=== PATIENT | female | born 1970 | race Asian ===

== ENCOUNTER 2020-08-27 15:24 | Outpatient (CLI) | payer OTHER, SELFPAY ==
--- NOTE | ~2020-08-27 | MM_ITS ---
EXAMINATION: MM screening [facility] BI w jazmyne HISTORY: Screening mammogram TECHNIQUE: Craniocaudal and mediolateral oblique 3-D tomosynthesis images were obtained and synthetic 2-D images were generated. CAD analysis was submitted and interpreted. COMPARISON: 08/19/2019, 08/07/2018, 08/03/1970 BREAST PARENCHYMAL COMPOSITION: There are scattered areas of fibroglandular density. FINDINGS: There is no evidence of suspicious mass, calcification, or architectural distortion to sugg est malignancy in either breast. There has been no suspicious interval change. IMPRESSION: 1. No mammographic evidence of malignancy. 2. Recommend routine screening mammography in one year. BI-RADS Category 1: Negative Reviewed, dictated and finalized at location A. CHARGER
== END 2020-08-27 15:25 | disposition home or self-care (01) ==
LOC: ANHIMG 15:29
PROVIDERS: PCP Emergency Medicine; Visit Provider Obstetrics & Gynecology
DX: Z12.31 Encounter for screening mammogram for malignant neoplasm of breast (principal)
CPT/HCPCS: 77063; 77067

== ENCOUNTER → 2021-08-15 09:32 | Outpatient (CLI) | payer OTHER, SELFPAY ==
--- NOTE | ~2021-08-15 | CT_ITS ---
EXAMINATION: CT abdomen pelvis wo/w con DATE: 08/15/2021 10:12 INDICATION: Hematuria TECHNIQUE: Computed tomography (CT) of the abdomen and pelvis was performed without intravenous contr ast in supine position. CT of the abdomen and pelvis was then performed in prone position with a tota l of 130 mL Omnipaque-350 intravenous contrast using a double-bolus technique for simultaneous opacif ication of the renal parenchyma and renal collecting system Automated exposure control and iterative reconstruction technique were employed. The dose-length product was 1158.73 mGy-cm. COMPARISON: None FINDINGS: Lung bases are clear. Heart size is normal. No pericardial or pleural effusion. Liver, gallbladder, s pleen, pancreas and bilateral adrenal glands are normal. No urolithiasis. Kidneys enhance symmetrical ly with 5 mm low-attenuation lesion in the right kidney which is too small to definitively, character ize most likely a renal cyst. Portions of the left and right ureters are decompressed remaining unopa cified with contrast on the delayed images. No urothelial irregularities identified in the contrast o pacified portions of the bilateral renal collecting systems and ureters. Bladder is normal. Bowels in cluding the appendix are normal. Anteverted uterus and bilateral adnexa are normal. No free intraperi toneal gas or fluid. No pathologically enlarged abdominal or pelvic lymphadenopathy. 4 mm anterolisth esis L4 on L5 with severe bilateral facet osteoarthritis at this level. Severe section scar along the anterior pelvic wall. IMPRESSION: 1. 5 mm low-attenuation likely right renal cyst which is too small to definitively characterize. Othe rwise normal kidneys and ureters with no urolithiasis or other etiology for reported hematuria. Reviewed, dictated and finalized at [facility]. ACTION OPERATOR IMPRESSION: 1. 5 mm low-attenuation likely right renal cyst which is too small to definitiv nguyen characterize. Otherwise normal kidneys and ureters with no urolithiasis or other etiology for reported hematuria.
[2021-08-15 09:51] LABS: Estimated Glomerular Filt Rate > 60
== END ==
PROVIDERS: PCP Emergency Medicine; Visit Provider Emergency Medicine
DX: R31.9 Hematuria, unspecified (principal); N28.1 Cyst of kidney, acquired
CPT/HCPCS: 74178; Q9967

== ENCOUNTER 2021-09-14 08:31 | Outpatient (CLI) | payer OTHER, SELFPAY ==
--- NOTE | ~2021-09-14 | MM_ITS ---
EXAMINATION: MM screening [facility] BI w jazmyne HISTORY: Screening mammogram TECHNIQUE: Craniocaudal and mediolateral oblique 3-D tomosynthesis images were obtained and synthetic 2-D images were generated. CAD analysis was submitted and interpreted. COMPARISON: 08/27/2020 08/19/2019, 08/07/2018 BREAST PARENCHYMAL COMPOSITION: There are scattered areas of fibroglandular density. FINDINGS: There is no evidence of suspicious mass, calcification, or architectural distortion to sugg est malignancy in either breast. There has been no suspicious interval change. IMPRESSION: 1. No mammographic evidence of malignancy. 2. Recommend routine screening mammography in one year. BI-RADS Category 1: Negative Reviewed, dictated and finalized at location A. NICAL SERVICES REP
== END 2021-09-14 08:32 | disposition home or self-care (01) ==
LOC: ANHIMG 08:33
PROVIDERS: PCP Emergency Medicine; Visit Provider Obstetrics & Gynecology
DX: Z12.31 Encounter for screening mammogram for malignant neoplasm of breast (principal)
CPT/HCPCS: 77063; 77067

== ENCOUNTER 2022-11-01 08:27 | Outpatient (CLI) | payer OTHER, SELFPAY ==
--- NOTE | ~2022-11-01 | MM_ITS ---
EXAMINATION: MM screening [facility] BI w jazmyne HISTORY: Screening mammogram TECHNIQUE: Craniocaudal and mediolateral oblique 3-D tomosynthesis images were obtained and synthetic 2-D images were generated. CAD analysis was submitted and interpreted. COMPARISON: 09/14/2021, 08/27/2020, 08/19/2019 bilateral screening mammogram examinations BREAST PARENCHYMAL COMPOSITION: There are scattered areas of fibroglandular density. FINDINGS: There is no evidence of suspicious mass, calcification, or architectural distortion to sugg est malignancy in either breast. There has been no suspicious interval change. IMPRESSION: 1. No mammographic evidence of malignancy. 2. Recommend routine screening mammography in one year. BI-RADS Category 1: Negative Reviewed, dictated and finalized at location B.
== END 2022-11-01 08:28 | disposition home or self-care (01) ==
LOC: ANHIMG 08:29
PROVIDERS: PCP Emergency Medicine; Visit Provider Obstetrics & Gynecology
DX: Z12.31 Encounter for screening mammogram for malignant neoplasm of breast (principal)
CPT/HCPCS: 77063; 77067

== ENCOUNTER 2024-01-03 15:13 | Outpatient (CLI) | payer OTHER, SELFPAY ==
--- NOTE | ~2024-01-03 | MM_ITS ---
EXAMINATION: MM screening [facility] BI w jazmyne HISTORY: Screening mammogram TECHNIQUE: Craniocaudal and mediolateral oblique 3-D tomosynthesis images were obtained and synthetic 2-D images were generated. CAD analysis was submitted and interpreted. COMPARISON: 11/01/2022, 09/14/2021 bilateral screening mammogram examinations BREAST PARENCHYMAL COMPOSITION: There are scattered areas of fibroglandular density. FINDINGS: There is no evidence of suspicious mass, calcification, or architectural distortion to sugg est malignancy in either breast. There has been no suspicious interval change. IMPRESSION: 1. No mammographic evidence of malignancy. 2. Recommend routine screening mammography in one year. BI-RADS Category 1: Negative Reviewed, dictated and finalized at location B.
== END 2024-01-03 15:14 | disposition home or self-care (01) ==
LOC: ANHIMG 15:15
PROVIDERS: PCP Emergency Medicine; Visit Provider Obstetrics & Gynecology
DX: Z12.31 Encounter for screening mammogram for malignant neoplasm of breast (principal)
CPT/HCPCS: 77063; 77067

== ENCOUNTER 2025-01-26 15:17 | Outpatient (CLI) | payer OTHER, SELFPAY ==
--- NOTE | ~2025-01-26 | MM_ITS ---
EXAMINATION: MM screening [facility] BI w jazmyne HISTORY: Screening TECHNIQUE: Craniocaudal and mediolateral oblique 3-D tomosynthesis images were obtained and synthetic 2-D images were generated. CAD analysis was submitted and interpreted. COMPARISON: Comparison to multiple prior studies sequentially, with oldest reviewed study dated 07/20. BREAST PARENCHYMAL COMPOSITION: Not dense: There are scattered areas of fibroglandular density. FINDINGS: There is no evidence of suspicious mass, calcification, or architectural distortion to sugg est malignancy in either breast. There has been no suspicious interval change. IMPRESSION: 1. No mammographic evidence of malignancy. 2. Recommend routine screening mammography in one year. BI-RADS Category 1: Negative Reviewed, dictated and finalized at location B.
--- OUTSIDE RECORDS SUMMARY | 2025-01-26 16:13 | XMS_ITS | Continuity of Care Document ---
Author Organization [facility] Address [address] [place] [address] [place] [address] Phone Care Team Providers Care Estimator Jewelry Name Role Phone Saúl Ellison MD Unavailable Unavailable Allergies, Adverse Reactions, Alerts Substance Reaction Status Criticality No Known Allergies Active No Inform ation Procedures Procedure Date PREV VISIT, EST, AGE 40-64 OFFICE/OUTPATIENT VISIT, EST PREV VISIT, EST, AGE 40-64 PREV VISIT, EST, AGE 40-64 OFFICE/OUTPATIENT VISIT, EST PREV VISIT, NEW, AGE 40-64 Advance Directives Directive Yes / No Effective Date File Name No Information Encounters Encounter Description Practice Location Reason(s) For Visit Diagnoses Date Provider Providers Copied on Encounter PREV VISIT, EST, AGE 40-64 [facility], [address] [place], [place], [id number], [place] tel:[phone] [facility] physical (chief complaint) Encounter for general adult medical exam w abnormal findingsMixed hyperlipidemiaLeuko peniaDisorder of iron metabolism, unspecifiedDisorder of bilirubin metabolism, unspecified 3 Scot Hays. [address], [facility] [address], [place], [place], [address] , [place]. tel:[phone] Referring Provider: Saúl Ellison, [address], [place], [place], [address]. tel:[phone] PREV VISIT, EST, AGE 40-64 [facility], [address] [place], [place], [address], [place] tel:[phone] [facility] Medicine physical (chief complaint) Encounter for general adult medical examination without abnormal findings 1 Scot Hays. [address], [address], [place], [place], [address] , [place]. tel:[phone] Referring Provider: Yanna Rios [address], [place], [place], [address]. tel:[phone] PREV VISIT, EST, AGE 40-64 [facility], [address], [place], [place], [address], [place] [phone] [facility] physical (chief complaint) Encntr for general adult medical exam w/o abnormal findings 0 Scot Hays. [address], [address], [place], [place], [address] , [place]. tel:[phone] Referring Provider: Yanna Rios [address], [place], [place], [address]. tel:[phone] OFFICE/OUTPA TIENT VISIT, EST [facility], [address], [place], [place], [address], [place] tel:[phone] [facility] Postmeno1 (chief complaint) hematuria1 (chief complaint) D (chief complaint) bili (chief complaint) HLP (chief complaint) wbc (chief complaint) HematuriaVitamin D deficiency, unspecifiedDisorder of bilirubin metabolism, unspecifiedHyperlip idemiaLeukopeniaAme norrhea 0 9 Scot Hays. [address], [address], [place], [place], [address] , [place]. tel:[phone] Referring Provider: Yanna Rios [address], [place], [place], [address]. tel:[phone] PREV VISIT, NEW, AGE 40-64 [facility], [address], [place], [place], [address], [place] [phone] [facility] Medicine physical (chief complaint) Encntr for general adult medical exam w/o abnormal findings 9 Scot Hays. [address], [address], [place], [place], [address] , . tel:[phone] Referring Provider: Saúl Ellison [address], [place], [place], [address]. tel:[phone] Family History Family Member Type Diagnosis Age At Onset Mother Problem (finding) ovarian CA Mother Problem (finding) Diabetes mellitus Sister Problem (finding) Alive and well Father Problem (finding) of tongue CA (Caus e Of ) 69 Payers Payer name Insurance type Covered libertarian ID Authoriza tion(s) No Information Social History Type Description Quantity Date Captured Comments Alcohol Use Details No Caffeine Use Details Unknown Tobacco Use Status Current non-smoker Smoking Status Never smoker Sex Female Vital Signs Date / Time: Height Weight BMI Pulse Rate Blood Pressure Temperature Respiratory Rate Body Surface Area Head Circumference BMI percentile Pulse Ox Inhaled Ox 9:20 AM 63.00 in 150.40 lbs 26.6 4 kg/m eter (2) 65 /min 120/88 mm[Hg] 97.3 F 16 /min Chief Complaint And Reason For Visit From encounter dated '02/23/2023 09:20'. physical (chief complaint). Description: Pt needs annual physical. Pt feels fine. Pt denies any active complaints Pt has not had lab done for a while. Pt wants lab work. Pt denies any fatigue or chest pain or headache, etc Plan Of Treatment Date Type Action Status Goal Special diet education compl eted Goal Special diet education compl eted Referral Ordered: DXA BONE DENSITY, AXIAL ordered Referral Ordered: Urology (related to Encounter for general adult medical examination without abnormal findings) ordered Referral Ordered: Referrals: Urology. Evaluate and treat ordered Referral Ordered: CT ABDOMEN&PELVIS W/CONTRAST ordered Referral Ordered: COLONOSCOPY AND BIOPSY ordered History Of Present Illness Encounter Date Complaint History Of Prese nt Illness physical Pt needs annual physical. Pt feels fine. Pt denies any active complaints Pt has not had lab done for a while. Pt wants lab work. Pt denies any fatigue or chest pain or headache, etc physical Pt needs annual physical. pt has persistent HLP Pt does not want to take statin. Pt has borderline high bilirubin due to mild elevation of indirect bili. Pt denies any abd pain or jaundice. Pt rarely drinks alcohol. her LDH is borderline low. Pt has borderline low WBC without other abnormal differential. Pt denies any recurrent fever or infection. Pt has low D. Pt takes otc vitamin D. Pt has recurrent hematuria. Pt denies any urinary symptoms Pt denies any flank pain Pt is postmeno. Pt otherwise feels well. Pt denies any other complaints physical Pt needs annual physical Pt has low D. Pt takes vitamin D. Pt takes calcium Pt is postmeno Pt has history of hematuria, high bili, HLP and low wbc Pt has not done lab yet pt denies any complaints wbc Pt has mild low WBC Pt denies any fever or infection hematuria1 Pt denies any fl ank pain or UTI symptoms D Pt has low D. Pt denies any fx bili Pt has mildly hi gh bili. Pt denies any jaundice or abd pain HLP Pt has HLP Pt schwarz s high HDL also. Postmeno1 Pt is postmeno a ccording to lab Pt has not had period for 6 months. However, she just spotted last week. Pt denies any pelvic pain physical Pt needs annual physical. Pt is very healthy. Pt is NOt on any medication. Pt c/o vasomotor symptoms with hot flash sometimes Pt has not had period for 6 months Pt denies any irregular vaginal bleeding, pelvic pain, vaginal discharge Pt denies any other complaints Instructions Date Instruction Additional Infor mation Weight management Related to Hem aturia Increase physical activity Relat ed to Hematuria Special diet education Related t o Body mass index (BMI) 27.0-27.9, adult Special diet education Related t o Body mass index (BMI) 26.0-26.9, adult Assessments Type Assessment Date assessment Encounter for general adult medi moe exam w abnormal findings assessment Mixed hyperlipidemia assessment Leukopenia assessment Disorder of iron metabolism, 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
--- OUTSIDE RECORDS SUMMARY | 2025-01-26 16:13 | XMS_ITS | Continuity of Care Document ---
Author Organization [facility] Address [address] [place] [address] Phone Care Team Providers Care Actuarial Assistant Name Role Phone Shalini SCHAEFFER, Shawna Unavailable Unavailable Advance Directives Directive Yes / No Effective Date File Name No Information Encounters Encounter Description Practice Location Reason(s) For Visit Diagnoses Date Provider Providers Copied on Encounter [facility], [address], [place], [place], [address], [place] tel:[phone] [facility] No Information Shalini Matos. [address], [id number], [place]. tel:[phone] Referring Provider: Toño Heredia, [facility] [facility], [place], [address]. tel:[phone] Family History Family Member Type Diagnosis Age At Onset No Information Payers Payer name Insurance type Covered green party ID Authoriza tion(s) BCBS INACTIVE OUT OF STATE [id number] Social History Type Description Quantity Date Captured Comments Sex Female Smoking Status No Information Chief Complaint And Reason For Visit No Information Reason For Referral Reason For Referral No Information History Of Present Illness Encounter Date Complaint History Of Prese nt Illness No Information Functional Status Date Functional Assessmen t No Information Instructions Date Instruction Additional Infor mation No Information Assessments Type Assessment Date No Information Patient Care Teams Name Effective Dates (start - stop) Status Members No Information
== END 2025-01-26 15:18 | disposition home or self-care (01) ==
PROVIDERS: PCP Emergency Medicine; Visit Provider Obstetrics & Gynecology
DX: Z12.31 Encounter for screening mammogram for malignant neoplasm of breast (principal)
CPT/HCPCS: 77063; 77067

== ENCOUNTER 2025-02-02 11:07 | Outpatient (CLI) | payer OTHER, SELFPAY ==
--- NOTE | ~2025-02-02 | DEXA_ITS ---
Bone Density Report Name: MARYA HUSSEIN Age: 54 Sex: Female Ethnicity: White Date of : 1970 Indication: postmenopausal; screening for osteoporosis; Referring Provider: LISSETH RENO Study: Bone densitometry was performed. Exam Date: February 02, 2025 Accession number: [id number] Bone Density: Region BMD T-score Z-score Classification AP Spine(L1-L4) 0.837 -1.9 -0.8 Osteopenia Femoral Neck (Left) 0.628 -2.0 -0.9 Osteopenia Total Hip (Left) 0.903 -0.3 0.4 Normal Femoral Neck (Right) 0.664 -1.7 -0.6 Osteopenia Total Hip (Right) 0.888 -0.4 0.3 Normal Total Hip Mean 0.895 -0.4 0.4 Normal World Health Organization criteria for BMD impression classify patients as: Normal (T-score at or above -1.0), Osteopenia (T-score between -1.0 and -2.5), or Osteoporosis (T-score at or below -2.5). 10-year Fracture Risk(1): Major Osteoporotic Fracture 7.9% Hip Fracture 0.9% Reported Risk Factors: [place] (), Neck BMD=0.628, BMI=28.2 (1) FRAX(R) Version 3.08. Fracture probability calculated for an untreated patient. Fracture probability may be lower if the patient has received treatment. Clinical Information Provided by Patient: Has used the following medications: Vitamin D, Calcium Patient maximum height was 62.0 Menopause Age: 49 No regular weight bearing exercise Drinks caffeinated beverages Onset of menses at age 13 Number of children 2 Impression: The patient has low bone mass, based on the Left Femoral Neck T-score. The patient has an estimated ten-year risk of hip fracture of 0.9% and an estimated ten-year risk of major fracture of 7.9%, based on the WHO FRAX algorithm. Discussion: BONE DENSITY IS LOW AT ONE OR MORE SKELETAL SITES. This patient's lowest T-score is low at one or more skeletal sites. It meets the World Health Organization's (WHO) criteria for ?low bone mass? (T-score between -1.0 and -2.5). The patient's 10-year risk of fracture as calculated by FRAX is less than the threshold where pharmacological therapy is recommended by the National Osteoporosis Foundation (NOF). However, all treatment decisions require clinical judgment and consideration of individual patient factors, including patient preferences, comorbidities, previous drug use, risk factors not captured in the FRAX model (e.g., frailty, falls, vitamin D deficiency, increased bone turnover, interval significant decline in bone density) and possible under or overestimation of fracture risk by FRAX. The patient should follow a healthful lifestyle (good nutrition with adequate calcium and vitamin D, and appropriate weight-bearing exercise). Follow-Up: Consider repeating this study in 2 to 3 years to reassess this patient's status, or sooner if there is some new clinical indication. Reported by: KORY on 02/02/2025 11:51:00 AM. Reviewed, dictated and finalized at location A.
--- OUTSIDE RECORDS SUMMARY | 2025-02-02 12:22 | XMS_ITS | Continuity of Care Document ---
Author Organization [facility] Address [address] [place] [address] Phone Care Team Providers Care Customer Experience Manager Name Role Phone Shalini SCHAEFFER, Shawna Unavailable Unavailable Advance Directives Directive Yes / No Effective Date File Name No Information Encounters Encounter Description Practice Location Reason(s) For Visit Diagnoses Date Provider Providers Copied on Encounter [facility], [address], [place], [place], [address], [place] tel:[phone] [facility] No Information Shalini Matos. [address], [id number], [place]. tel:[phone] Referring Provider: Toño Heredia, [facility], [place], [address]. tel:[phone] Family History Family Member Type Diagnosis Age At Onset No Information Payers Payer name Insurance type Covered green party ID Authoriza tion(s) BCBS INACTIVE OUT OF STATE [id number] Social History Type Description Quantity Date Captured [...]
--- OUTSIDE RECORDS SUMMARY | 2025-02-02 12:22 | XMS_ITS | Continuity of Care Document ---
Author Organization [facility] Address [address] [place] [address] Phone Care Team Providers Care Mold Making Supervisor Name Role Phone Saúl Ellison MD Unavailable [...] on Encounter PREV VISIT, EST, AGE 40-64 [facility], [address] [place], [address], [place] tel:[phone] [facility] physical (chief complaint) Encounter for general adult medical exam w abnormal findingsMixed hyperlipidemiaLeuko peniaDisorder of iron metabolism, unspecifiedDisorder of bilirubin metabolism, unspecified 3 [address]ays. [address], [facility] [address], [place], [place], [address] , [place]. tel:[phone] Referring Provider: Saúl Ellison, [address], [place], [place], [address]. tel:[phone] PREV VISIT, EST, AGE 40-64 [facility], [address] [place], [address], [place] tel:[phone] [facility] Medicine physical (chief complaint) Encounter for general adult medical examination without abnormal findings 1 Scot Hays. [address], [place], [place], [address] , [place]. tel:[phone] Referring Provider: Yanna Rios [address], [place], [place], [address]. tel:[phone] PREV VISIT, EST, AGE 40-64 [facility], [address], [place], [place], [address], [place] [phone] [facility] physical (chief complaint) Encntr for general adult medical exam w/o abnormal findings 0 Scot Hays. [address], [address], [place], [place], [address] , [place]. [phone] Referring Provider: Yanna Rios [address], [place], [place], [address]. tel:[phone] OFFICE/OUTPA TIENT VISIT, EST [facility], [address], [place], [place], [address], [place] tel:[phone] [facility] Postmeno1 (chief complaint) hematuria1 (chief complaint) D (chief complaint) bili (chief complaint) HLP (chief complaint) wbc (chief complaint) HematuriaVitamin D deficiency, unspecifiedDisorder of bilirubin metabolism, unspecifiedHyperlip idemiaLeukopeniaAme norrhea 0 9 [address]ays. [address], [address], [place], [place], [address] , [place]. [phone] Referring Provider: Yanna Rios [address], [place], [place], [address]. tel:[phone] PREV VISIT, NEW, AGE 40-64 [facility], [address], [place], [place], [address], [place] [phone] [facility] Medicine physical (chief complaint) Encntr for general adult medical exam w/o abnormal findings 9 Scot Hays. [address], [address], [place], [place], [address] , . tel:[phone] Referring Provider: Saúl Ellison [address], [place], [place], [address]. tel:[phone] Family History Family Member Type Diagnosis Age At Onset Mother Problem (finding) ovarian CA Mother Problem (finding) Diabetes mellitus Sister Problem (finding) Alive and well Father Problem (finding) of tongue CA (Caus e Of ) 69 Payers Payer name Insurance type Covered republican ID Authoriza tion(s) No Information Social History [...] Mental Status Date Cognitive Assessment Orientation - Prewitt ed to time, place, person, situation.
== END 2025-02-02 11:08 | disposition home or self-care (01) ==
PROVIDERS: PCP Emergency Medicine; Visit Provider Obstetrics & Gynecology
DX: M85.89 Other specified disorders of bone density and structure, multiple sites (principal); R29.890 Loss of height; Z13.820 Encounter for screening for osteoporosis
CPT/HCPCS: 77080